=== PATIENT | male | born 1980 | race American Indian/Alaskan Native ===

== ENCOUNTER 2021-08-24 08:59 | Emergency (ER) | payer MEDICARE, MEDICAID ==
[2021-08-24] MEDS ORDERED: Ziprasidone HCl 20 MG Cap PO SCH (09:00)
[2021-08-24] MEDS ORDERED: Haloperidol Lactate 5 MG/ML SDV IM ONE (09:08)
[2021-08-24] MEDS ORDERED: LORazepam 2 MG/ML SDV IM ONE (09:10)
[2021-08-24] MEDS ORDERED: diphenhydrAMINE 50 MG/ML SDV IM ONE (09:10)
[2021-08-24 10:50] LABS: CORONAVIRUS COVID-19 NAA NEGATIVE (NEGATIVE)
== END 2021-08-24 17:30 ==
LOC: JP.ED 08:59
DX: F31.2 Bipolar disorder, current episode manic severe with psychotic features (principal); F10.231 Alcohol dependence with withdrawal delirium; Z88.5 Allergy status to narcotic agent; Z20.822 Contact with and (suspected) exposure to COVID-19
CPT/HCPCS: 0241U; 36415; 80048; 80076; 80305; 82140; 82803; 83735; 84443; 85025; 96372; 99285; J1200; J1630; J2060